=== PATIENT | female | born 1975 | race Caucasian/White ===

== ENCOUNTER 2021-02-08 06:18 | Inpatient (IN) | payer BC, OTHER ==
[2021-02-08] MEDS ORDERED: HYDROmorphone 1 MG/ML 1 ML SYRINGE IVP STA (06:36)
[2021-02-08] MEDS ORDERED: LORazepam 2 MG/ML INJ IV STA (06:36)
[2021-02-08] MEDS ORDERED: hydrALAZINE HCL 20 MG/ML 1 ML VIAL IVP STA ×2 (06:37→23:54)
--- NOTE | 2021-02-08 06:41 | ED ---
Extremity Problem HPI - General Source: patient Mode of arrival: ambulatory <TashiMarcelle Ackerman - Last Filed: 02/08/21 09:44> <Ambika Barriga Deloris - Last Filed: 02/16/21 03:01> - General Chief complaint: Extremity Problem,Nontraumatic Stated complaint: L arm pain Time Seen by Provider: 02/08/21 06:30 - History of Present Illness Initial comments: 45yo female with hx of HTN, thyroid disorders, medically managed "heart attack" no hx of stents or bypass who did not take her medications yet this morning presenting for cc of left arm pain x 2-3 days. pateint states for the past 3 days she has had pain with moving her left arm up, she states she can t barely lift it without extreme pain in the upper arm/shoulder. Patient denies redness, fevers, chills, general malaise. She denies chest pain, dyspnea, but states the pain is so severe its causing her anxiety. Pt denies falls/trauma. Patient denies hx of aneursyms/any back pain. Patient upon arrival appears nontoxic in no distress, however her blood pressure is significantly elevated. (Marcelle Akins) - Related Data Home Medications Medication Instructions Recorded Confirmed Aspirin EC [Ecotrin Low Dose] 81 mg PO DAILY 02/08/21 02/08/21 LORazepam [Ativan] 1 mg PO BID PRN 02/08/21 02/08/21 Levothyroxine Sodium [Synthroid] 125 mcg PO DAILY 02/08/21 02/08/21 Metoprolol Tartrate [Lopressor] 100 mg PO BID 02/08/21 02/08/21 Spironolactone 100 mg PO DAILY 02/08/21 02/08/21 Previous Rx's Medication Instructions Recorded Ascorbic Acid [Vitamin C] 1,000 mg PO DAILY tab 02/09/21 Cholecalciferol [Vitamin D3 (25 50 mcg PO DAILY tablet 02/09/21 Mcg = 1000 Iu)] Ibuprofen [Motrin] 600 mg PO Q6HR PRN #30 tab 02/09/21 Losartan [Cozaar] 50 mg PO DAILY #30 tab 02/09/21 Potassium Chloride ER [K-Dur 10] 10 meq PO DAILY #30 tab 02/09/21 Allergies Allergy/AdvReac Type Severity Reaction Status Date / Time ampicillin Allergy Rash/Hives Verified 02/08/21 07:48 Review of Systems ROS Other: All systems not noted in ROS Statement are negative. <Marcelle Akins Meka - Last Filed: 02/08/21 09:44> ROS Other: All systems not noted in ROS Statement are negative. <Ambika Barriga Deloris - Last Filed: 02/16/21 03:01> ROS Statement: Those systems with pertinent positive or pertinent negative responses have been documented in the HPI. Past Medical History Past Medical History: Asthma, Hypertension, Thyroid Disorder Past Surgical History: Bariatric Surgery Additional Past Surgical History / Comment(s): left thumb tendon repair 2003 Past Psychological History: Bipolar Smoking Status: Former smoker Past Alcohol Use History: None Reported Past Drug Use History: None Reported <TashiMarcelle L - Last Filed: 02/08/21 09:44> General Exam <BryonMarcelle keating - Last Filed: 02/08/21 09:44> - General Exam Comments Initial Comments: General: The patient is awake and alert, in no distress Eye: Pupils are equal, round and reactive to light, extra-ocular movements are intact. No nystagmus. There is normal conjunctiva bilaterally. No signs of icterus. Ears, nose, mouth and throat: There are moist mucous membranes and no oral lesions. Neck: The neck is supple, there is no tenderness or JVD. Cardiovascular: There is a regular rate and rhythm. No murmur, rub or gallop is appreciated. Respiratory: Lungs are clear to auscultation, respirations are non-labored, breath sounds are equal. No wheezes, stridor, rales, or rhonchi. Musculoskeletal: P Job patient over the left anterior shoulder joint. Patient refuses to fully range secondary to pain and discomfort. Wincing Normal ROM, no tenderness. Strength 5/5. Sensation intact. Pulses equal bilaterally 2+. Neurological: A&O x 3. CN II-XII intact, There are no obvious motor or sensory deficits. Coordination appears grossly intact. Speech is normal. Skin: Skin is warm and dry and no rashes or lesions are noted. Psychiatric: Cooperative, appropriate mood & affect, normal judgment. (Marcelle Akins) Course Vital Signs 02/08/21 02/08/21 02/08/21 06:22 07:52 10:00 Temperature 97.8 F Pulse Rate 72 79 66 Pulse Rate [ Pulse Oximetery ] Respiratory 22 18 18 Rate Blood Pressure 230/118 195/79 150/83 Blood Pressure [Right Arm] O2 Sat by Pulse 98 97 Oximetry 02/08/21 02/08/21 02/08/21 11:15 13:30 18:39 Temperature 98.7 F 98.8 F Pulse Rate 66 64 74 Pulse Rate [ Pulse Oximetery ] Respiratory 18 18 18 Rate Blood Pressure 147/84 151/88 172/95 Blood Pressure [Right Arm] O2 Sat by Pulse 98 96 96 Oximetry 02/08/21 02/09/21 02/09/21 20:32 00:00 00:17 Temperature Pulse Rate 74 68 Pulse Rate [ 82 Pulse Oximetery ] Respiratory 20 16 15 Rate Blood Pressure 192/110 194/97 Blood Pressure 164/83 [Right Arm] O2 Sat by Pulse 96 97 Oximetry Medical Decision Making - Lab Data Result diagrams: 02/08/21 06:53 02/08/21 06:53 <Marcelle Akins - Last Filed: 02/08/21 09:44> - Lab Data Result diagrams: 02/09/21 05:18 02/09/21 14:19 <Ambika Barriga - Last Filed: 02/16/21 03:01> - Medical Decision Making 45-year-old female presenting for left arm discomfort, which appears musculoskeletal patient however is significant hypertensive and has history of cardiac disease. EKG is not within normal limits however there is no ST elevation or depression. There is an intraventricular block. Patient troponin elevated. patient potassium low. i do feel however that this troponin is likely chronic in nature and not the cause of left arm pain as xr also shows possible intra-articular foreign body as well as osseous lesions which correlates clinically as the pain is reproducible to touch and movement. Patient will have serial troponins, and heparin was initiated as there is no other lab values to comes and patient does have cardiac hx. patient agreeable to admission/blood thinners and care plan. potassium replaced orally/IV. Dr Barriga agreeable to care plan/admission. (Marcelle Akins) I was available for consultation in the emergency department. The history and physical exam were done by the midlevel provider. I was consulted for this patients care. I reviewed the case with the midlevel provider and based on their presentation of the patient, I agree with the assessment, medical decision making and plan of care as documented. Chart was dictated using ScriptPad dictation software. Attempts were made to correct any dictation errors however some typographical errors may persist. Patient was seen during a national state of emergency due to the Covid-19 pandemic. (Ambika Barriga) - Lab Data Lab Results 02/08/21 02/08/21 02/08/21 Range/Units 06:52 06:53 06:53 WBC 8.8 (3.8-10.6) k/uL RBC 4.37 (3.80-5.40) m/uL Hgb 12.5 (11.4-16.0) gm/dL Hct 36.1 (34.0-46.0) % MCV 82.7 (80.0-100.0) fL MCH 28.6 (25.0-35.0) pg MCHC 34.6 (31.0-37.0) g/dL RDW 13.9 (11.5-15.5) % Plt Count 206 (150-450) k/uL MPV 8.8 Neutrophils % 73 % Lymphocytes % 19 % Monocytes % 5 % Eosinophils % 2 % Basophils % 1 % Neutrophils # 6.4 (1.3-7.7) k/uL Lymphocytes # 1.7 (1.0-4.8) k/uL Monocytes # 0.5 (0-1.0) k/uL Eosinophils # 0.2 (0-0.7) k/uL Basophils # 0.0 (0-0.2) k/uL Hyperchromasia Slight PT 10.1 (9.0-12.0) sec INR 0.9 (<1.2) APTT 25.3 (22.0-30.0) sec Sodium (137-145) mmol/L Potassium (3.5-5.1) mmol/L Chloride (98-107) mmol/L Carbon Dioxide (22-30) mmol/L Anion Gap mmol/L BUN (7-17) mg/dL Creatinine (0.52-1.04) mg/dL Est GFR (CKD-EPI)AfAm (>60 ml/min/1.73 sqM) Est GFR (CKD-EPI)NonAf (>60 ml/min/1.73 sqM) Glucose (74-99) mg/dL Calcium (8.4-10.2) mg/dL Magnesium (1.6-2.3) mg/dL Total Bilirubin (0.2-1.3) mg/dL AST (14-36) U/L ALT (4-34) U/L Alkaline Phosphatase (38-126) U/L Troponin I (0.000-0.034) ng/mL Total Protein (6.3-8.2) g/dL Albumin (3.5-5.0) g/dL Urine Color Colorless Urine Appearance Clear (Clear) Urine pH 6.5 (5.0-8.0) Ur Specific [place] 1.001 (1.001-1.035) Urine Protein Negative (Negative) Urine Glucose (UA) Negative (Negative) Urine Ketones Negative (Negative) Urine Blood Negative (Negative) Urine Nitrite Negative (Negative) Urine Bilirubin Negative (Negative) Urine Urobilinogen <2.0 (<2.0) mg/dL Ur Leukocyte Esterase Small H (Negative) Urine RBC 1 (0-5) /hpf Urine WBC 1 (0-5) /hpf Ur Squamous Epith Cells 2 (0-4) /hpf 02/08/21 02/08/21 02/08/21 Range/Units 06:53 06:53 06:53 WBC (3.8-10.6) k/uL RBC (3.80-5.40) m/uL Hgb (11.4-16.0) gm/dL Hct (34.0-46.0) % MCV (80.0-100.0) fL MCH (25.0-35.0) pg MCHC (31.0-37.0) g/dL RDW (11.5-15.5) % Plt Count (150-450) k/uL MPV Neutrophils % % Lymphocytes % % Monocytes % % Eosinophils % % Basophils % % Neutrophils # (1.3-7.7) k/uL Lymphocytes # (1.0-4.8) k/uL Monocytes # (0-1.0) k/uL Eosinophils # (0-0.7) k/uL Basophils # (0-0.2) k/uL Hyperchromasia PT (9.0-12.0) sec INR (<1.2) APTT (22.0-30.0) sec Sodium 140 (137-145) mmol/L Potassium 2.4 L* (3.5-5.1) mmol/L Chloride 99 (98-107) mmol/L Carbon Dioxide 32 H (22-30) mmol/L Anion Gap 9 mmol/L BUN 22 H (7-17) mg/dL Creatinine 1.05 H (0.52-1.04) mg/dL Est GFR (CKD-EPI)AfAm 75 (>60 ml/min/1.73 sqM) Est GFR (CKD-EPI)NonAf 65 (>60 ml/min/1.73 sqM) Glucose 112 H (74-99) mg/dL Calcium 8.9 (8.4-10.2) mg/dL Magnesium 1.8 (1.6-2.3) mg/dL Total Bilirubin 0.9 (0.2-1.3) mg/dL AST 28 (14-36) U/L ALT 11 (4-34) U/L Alkaline Phosphatase 70 (38-126) U/L Troponin I 0.095 H* (0.000-0.034) ng/mL Total Protein 7.6 (6.3-8.2) g/dL Albumin 4.1 (3.5-5.0) g/dL Urine Color Urine Appearance (Clear) Urine pH (5.0-8.0) Ur Specific [place] (1.001-1.035) Urine Protein (Negative) Urine Glucose (UA) (Negative) Urine Ketones (Negative) Urine Blood (Negative) Urine Nitrite (Negative) Urine Bilirubin (Negative) Urine Urobilinogen (<2.0) mg/dL Ur Leukocyte Esterase (Negative) Urine RBC (0-5) /hpf Urine WBC (0-5) /hpf Ur Squamous Epith Cells (0-4) /hpf Disposition Is patient prescribed a controlled substance at d/c from ED?: No Time of Disposition: 08:35 Decision to Admit Reason: Admit from EC Decision Date: 02/08/21 Decision Time: 08:35 <Marcelle Akins - Last Filed: 02/08/21 09:44> <Ambika Barriga - Last Filed: 02/16/21 03:01> Clinical Impression: Elevated troponin, Bone lesion, Left shoulder pain, Hypokalemia Disposition: ADMITTED IP TO THIS HOSP Condition: Stable
[2021-02-08 07:08] LABS: Basophils % (A) 1 %; Eosinophils # (A) 0.2 k/uL (0-0.7); Eosinophils % (A) 2 %; HCT 36.1 % (34.0-46.0); HGB 12.5 gm/dL (11.4-16.0); Hyperchromasia Slight; Lymphocytes # (A) 1.7 k/uL (1.0-4.8); Lymphocytes % (A) 19 %; MCH 28.6 pg (25.0-35.0); MCHC 34.6 g/dL (31.0-37.0); MCV 82.7 fL (80.0-100.0); Mean Platelet Volume 8.8; Monocytes # (A) 0.5 k/uL (0-1.0); Monocytes % (A) 5 %; Neutrophils # (A) 6.4 k/uL (1.3-7.7); Neutrophils % (A) 73 %; Platelet Count 206 k/uL (150-450); RBC 4.37 m/uL (3.80-5.40); RDW 13.9 % (11.5-15.5); WBC 8.8 k/uL (3.8-10.6)
[2021-02-08 07:15] LABS: Appearance,Urine Clear (Clear); Bilirubin,Urine Negative (Negative); Blood,Urine Negative (Negative); Color,Urine Colorless; Glucose,Urine (UA) Negative (Negative); Ketones,Urine Negative (Negative); Leukocyte Esterase,Urine Small (Negative); Nitrite,Urine Negative (Negative); PH, Urine 6.5 (5.0-8.0); Protein,Urine Negative (Negative); RBC,Urine 1 /hpf (0-5); Specific Gravity,Urine 1.001 (1.001-1.035); Squamous Epithelial Cell,Urine 2 /hpf (0-4); Urobilinogen,Urine <2.0 mg/dL (<2.0); WBC,Urine 1 /hpf (0-5)
[2021-02-08 07:18] LABS: Albumin 4.1 g/dL (3.5-5.0); Calcium 8.9 mg/dL (8.4-10.2); Total Bilirubin 0.9 mg/dL (0.2-1.3); Total Protein 7.6 g/dL (6.3-8.2)
[2021-02-08 07:23] LABS: Potassium 2.4 mmol/L (3.5-5.1)
[2021-02-08] MEDS ORDERED: POTASSIUM CHLORIDE 20 MEQ in WATER FOR INJECTION 1 100ML.BAG IVPB ONE (07:25)
[2021-02-08] MEDS ORDERED: POTASSIUM CHLORIDE ER 20 MEQ TAB.ER PO STA ×2 (07:25→09:49)
--- NOTE | 2021-02-08 07:30 | XR ---
EXAMINATION TYPE: XR chest 2V DATE OF EXAM: 02/08/2021 COMPARISON: Chest x-ray October 15, 2011. HISTORY: Hypertension. Left arm pain. TECHNIQUE: Frontal and lateral views of the chest are obtained. FINDINGS: There is new right lower lobe opacity medial aspect on 2 views. Left lung is clear. No ple ural effusion or pneumothorax seen. Cardiac silhouette size is upper limits of normal. Lap band devic e redemonstrated, slightly more horizontal orientation noted. Correlate clinically for possible slip page. The osseous structures are intact. IMPRESSION: New right lower lobe acute infiltrate and/or atelectasis.
--- NOTE | 2021-02-08 07:41 | XR ---
EXAMINATION TYPE: XR shoulder complete LT, XR humerus LT DATE OF EXAM: 02/08/2021 CLINICAL HISTORY: Pain and diminished range of motion. TECHNIQUE: Three views of the left shoulder are obtained. 2 views left humerus. COMPARISON: None. FINDINGS: There is no acute fracture/dislocation evident in the left shoulder. The acromioclavicula r and glenohumeral joint spaces appear within normal limits. Numerous rounded densities some appear t o localize to the humeral head and scaphoid including osseous glenoid. Some likely external to the pamela ne presumed intra-articular in location. Overlying Clothing material is present. No acute fracture or dislocation left humerus. Visualized portion of the left elbow joint shows addit ional sclerotic foci. IMPRESSION: As above. Nonspecific intra-articular sclerotic foci differential includes such etiologie s such as osteopoikilosis. Similar findings noted on 2013 left elbow and wrist x-rays. Possible intra -articular loose bodies of left shoulder region. Advise nonemergent orthopedic referral it has not be en performed.
[2021-02-08] MEDS ORDERED: METOPROLOL TARTRATE 50 MG TAB PO STA (07:50)
[2021-02-08] MEDS ORDERED: HEPARIN SODIUM 1,000 UN/ML (10ML VL) IV PRN (08:29)
[2021-02-08] MEDS ORDERED: HEPARIN SODIUM 1,000 UN/ML (10ML VL) IV ONE (08:29)
[2021-02-08] MEDS ORDERED: NITROGLYCERIN SL TABS 0.4 MG TAB SUBLINGUAL PRN (08:32)
[2021-02-08] MEDS: HEPARIN SOD,PORK IN 0.45% NACL 25,000 UNIT in 0.45% NACL 1 250ML.BAG IV SCH (09:13)
[2021-02-08] MEDS: SPIRONOLACTONE 25 MG TAB PO SCH (09:59)
[2021-02-08] MEDS: KETOROLAC 15 MG/ML 1 ML VIAL IVP SCH ×2 (10:00→20:29)
[2021-02-08 10:25] LABS: INR 0.9 (<1.2); Partial Thromboplastin Time 25.3 sec (22.0-30.0); Prothrombin Time 10.1 sec (9.0-12.0)
[2021-02-08] MEDS: METOPROLOL TARTRATE 50 MG TAB PO SCH (11:19)
--- NOTE | 2021-02-08 12:55 | CONS ---
CONSULTATION Mrs. Tripathi is a 45-year-old female who presented with ongoing left arm discomfort going on for the last 2 days. The discomfort is constant, worse with certain position and palpitation. Cardiology consultation was requested because of mild troponin elevation. The patient was noted to be hypokalemic on presentation. She is coronavirus positive on presentation. The patient, according to her, had been admitted to [facility] in October 2019 and at that time had mild troponin elevation but no cardiac catheterization was done. She has also an issue with her function and adrenal gland has been evaluated at [facility], although details of that are not available to me. The patient has dyspnea on exertion. She denies any chest discomfort. She has occasional dizziness and palpitation but no syncope. Mild peripheral edema. No clear PND nor orthopnea. She denies any recent trauma to her arm. Her coronary risk factors are negative for smoking. She stopped many years ago. She has hypertension, but did not take her medication this morning. She has no history of diabetes or hyperlipidemia. MEDICATION: Her medications at home included Synthroid, spironolactone 100 mg daily, metoprolol tartrate 100 mg twice a day, lorazepam, and aspirin. REVIEW OF SYSTEMS: RESPIRATORY SYSTEM: She has dyspnea on exertion, but no recent wheezing or cough. GI SYSTEM: No recent GI bleeding, no peptic ulcer disease. SYSTEM: No recent dysuria or hematuria. She had the adrenal gland abnormality, although details are not available. PHYSICAL EXAMINATION: On presentation to the emergency room, her blood pressure was 230/118 is down to 150/83 after receiving her medication. Examination otherwise her heart rate in the 60s. HEAD: Normocephalic. EYES: Sclerae anicteric. NECK: Good upstroke. No jugular venous distention. LUNGS: Clear to auscultation. HEART: Regular rate and rhythm. S1, S2. No S3 with a systolic murmur 2/6, early peaking. No diastolic murmur. No rub. ABDOMEN: Soft, nontender. Positive bowel sounds. No organomegaly. EXTREMITIES: No edema. Intact distal pulses. LAB DATA: Lab data revealed troponin 0.095, 0.084. BUN and creatinine 22 and 1.05. Potassium 2.4. Hemoglobin of 12.5. Her coronavirus PCR is positive. Her chest x-ray shows right lower lobe infiltrate. IMPRESSION: 1. COVID-19 infection. 2. Mild troponin elevation most likely related to the infectious process. 3. Hypokalemia, most likely related to adrenal gland abnormalities. Patient is on high dose of Aldactone and probably that was she may have an adrenal benign tumor, although details are not available. She has underwent prior workup in that regard according to her. 4. History of hypertension. 5. Left arm discomfort atypical for ischemic heart disease, reproducible by palpation. RECOMMENDATION: I will obtain echocardiogram with Doppler. We will try to obtain the prior workup that was done in [facility]. Depending on the results of the testing, further recommendation will be made. In the meantime, she has been initiated in her treatment. I will try to obtain an EKG to compare to the EKG that she has done here with showed T- wave inversion in lateral leads with evidence of hypertrophy. Depending on the results of testing, further recommendation will be made. Thank you for this consult. We will follow with you. MMODL / IJN: [id number] /
--- NOTE | 2021-02-08 14:12 | P.HPIM ---
History of Present Illness H&P Date: 02/08/21 HISTORY OF PRESENT ILLNESS This is a 45-year-old female patient of Dr. Jarrett with PMH of intermittent asthma, hypertension, hypothyroidism and history of lap band surgery. She states that she developed left shoulder pain the one from the left shoulder to the upper arm area. She woke up on Monday and felt like she slept on it wrong and experienced pain. The pain has been getting worse and has not been able to sleep for the past 2 nights. Patient is unable to lift her left arm. She utilizes her right arm to lift her left arm. She denies having any numbness or tingling. Area is very tender to touch. She denies having any radiation of the pain. No chest pain. She denies any bloody or tarry stools. She does see a chiropractor. Patient presented to [facility] emergency center for evaluation. She was afebrile, heart rate 72, blood pressure 230/118. Pulse ox 90% on room air. CBC was unremarkable. Potassium 2.4, CO2 32. BUN 22 and creatinine 1.04. Blood sugar 112. Magnesium 1.8. Troponin 0.095. 0.084 and 0.077. Urinalysis negative for infection. COVID-19 positive. EKG with sinus rhythm with T-wave inversions in Left shoulder x-ray reveals intra-articular sclerotic foci differential includes osteopoikilosis. Possible intra-articular loose bodies of the left shoulder region. Chest x-ray reveals new right lower lobe acute infiltrate and/or atelectasis Patient received hydralazine IV push 1, Lopressor, potassium, started on heparin drip, aspirin, Lopressor and Aldactone to be admitted to the cardiac stepdown unit and cardiology consult. REVIEW OF SYSTEMS Constitutional: No fever, no chills, no night sweats. No weight change. No weakness, fatigue or lethargy. No daytime sleepiness. EENT: No headache. No blurred vision or double vision, no loss of vision. No loss of Hearing, no ringing in the ears, no dizziness. No nasal drainage or congestion. No epistaxis. No sore throat. Lungs: No shortness of breath, cough, no sputum production. No wheezing. Cardiovascular: No chest pain, no lower extremity edema. No palpitations. No paroxysmal nocturnal dyspnea. No orthopnea. No lightheadedness or dizziness. No syncopal episodes. Abdominal: No abdominal pain. No nausea, vomiting. No diarrhea. No constipation. No bloody or tarry stools.. No loss of appetite. Genitourinary: No dysuria, increased frequency, urgency. No urinary retention. Musculoskeletal: No myalgias. No muscle weakness, no gait dysfunction, no frequent falls. No back pain. No neck pain. Left shoulder and left upper arm pain. Integumentary: No wounds, no lesions. No rash or pruritus. No unusual bruising. No change in hair or nails. Neurologic: No aphasia. No facial droop. No change in mentation. No head injury. No headache. No paralysis. No paresthesia. Psychiatric: No depression. No anxiety. No mood swings. Endocrine: No abnormal blood sugars. No weight change. No excessive sweating or thirst. No cold intolerance. SOCIAL HISTORY Patient was a smoker at age [age]. No alcohol use, no illicit drug use, no marijuana use. FAMILY HISTORY Mother is alive with history of hypertension, hypothyroidism, gallgladder disease. Father is alive with history of COPD. Patient has one brother with history of hypertension. No sisters, no children. There is history of coronary artery disease in her grandparents. PHYSICAL EXAMINATION Gen: This is an obese 45-year-old female. Patient is resting on the ear structure and appears to be comfortable and in no acute distress. No acute respiratory distress noted. HEENT: Head is atraumatic, normocephalic. Pupils equal, round. Sclerae is anicteric. NECK: Supple. No JVD. No lymphadenopathy. No thyromegaly. LUNGS: Managed to the bases. No wheezes or rhonchi. No intercostal retractions. No accessory muscle usage. HEART: Regular rate and rhythm. 2/6 systolic murmur. ABDOMEN: Soft. Bowel sounds are present. No masses. No tenderness. EXTREMITIES: No pedal edema. No calf tenderness. Left shoulder decreased range of motion, significant tenderness. Capillary refill immediate. NEUROLOGICAL: Patient is awake, alert and oriented x3. Cranial nerves 2 through 12 are grossly intact. ASSESSMENT AND PLAN 1. Covid [address] Beckett. Patient started on dexamethasone 6 mg oral daily, vitamin supplements. 2. Elevated troponin secondary to infectious process. Consult with cardiology appreciated. Patient is on a heparin drip. Echocardiogram ordered. 3. Hypokalemia. Status post replacement. Repeat potassium level at 3 PM. 4. Hypertensive emergency. Status post IV hydralazine and Lopressor. Continue Lopressor 100 mg twice daily, Aldactone 100 mg daily. 5. Left shoulder pain. Consult with orthopedics. Toradol 50 mg IV push every 6 hours for pain. 6. Hyperaldosteronism. Continue Aldactone, replace potassium. 7. Hypothyroidism. Continue levothyroxine 125 g daily. 8. Mild intermittent asthma without exacerbation. Patient is not currently on medications. 9. GI prophylaxis. Protonix. 9. DVT prophylaxis. Patient is on heparin drip. Patient will be admitted to the hospital for a minimum of 2 night stay. DISCHARGE PLAN Home. Impression and plan of care have been directed as dictated by the signing physician. Rivka Combs nurse practitioner acting as scribe for signing physician. Past Medical History Past Medical History: Asthma, Hypertension, Thyroid Disorder Past Surgical History: Bariatric Surgery Additional Past Surgical History / Comment(s): left thumb tendon repair 2003 Past Psychological History: Bipolar Smoking Status: Former smoker Past Alcohol Use History: None Reported Past Drug Use History: None Reported Medications and Allergies Home Medications Medication Instructions Recorded Confirmed Type Aspirin EC [Ecotrin Low Dose] 81 mg PO DAILY 02/08/21 02/08/21 History LORazepam [Ativan] 1 mg PO BID PRN 02/08/21 02/08/21 History Levothyroxine Sodium [Synthroid] 125 mcg PO DAILY 02/08/21 02/08/21 History Metoprolol Tartrate [Lopressor] 100 mg PO BID 02/08/21 02/08/21 History Spironolactone 100 mg PO DAILY 02/08/21 02/08/21 History Allergies Allergy/AdvReac Type Severity Reaction Status Date / Time ampicillin Allergy Rash/Hives Verified 02/08/21 07:48 Physical Exam Vitals: Vital Signs Temp Pulse Resp BP Pulse Ox 02/08/21 07:52 79 18 195/79 02/08/21 06:22 97.8 F 72 22 230/118 98 Intake and Output 02/07/21 02/08/21 02/08/21 22:59 06:59 14:59 Other: Weight 86.183 kg Results CBC & Chem 7: 02/09/21 05:18 02/09/21 05:18 Labs: Abnormal Lab Results - Last 24 Hours (Table) 02/08/21 02/08/21 02/08/21 Range/Units 06:53 06:53 06:53 Potassium 2.4 L* (3.5-5.1) mmol/L Carbon Dioxide 32 H (22-30) mmol/L BUN 22 H (7-17) mg/dL Creatinine 1.05 H (0.52-1.04) mg/dL Glucose 112 H (74-99) mg/dL Troponin I 0.095 H* (0.000-0.034) ng/mL Ur Leukocyte Esterase Small H (Negative)
[2021-02-08] MEDS: LORazepam 1 MG TAB PO PRN (14:55)
[2021-02-08] MEDS: ZINC SULFATE 220 MG CAP PO SCH (14:55)
[2021-02-08] MEDS: CHOLECALCIFEROL 25 MCG (1000 IU) TABLET PO SCH (14:56)
[2021-02-08] MEDS: dexAMETHasone 2 MG TAB PO SCH (14:57)
--- NOTE | 2021-02-08 16:57 | P.CNPUL ---
History of Present Illness Consult date: 02/08/21 Chief complaint: Shoulder pain History of present illness: 45-year-old female patient, presented to the emergency department which shoulder pain. The patient has been having ongoing left arm discomfort for the past 2 days. She came into the emergency department. Her blood pressure was 2 3118 and pulse ox was 90% on room air oxygen. Further testing revealed a positive Covid 19 infection. Patient had a BUN of 22 with a creatinine of 1 and the troponins were 0.08 and 0.07 respectively 2. EKG showed some nonspecific T- wave inversions. X-ray of the shoulder showed sclerosis within the joint and there was some nonspecific intra-articular sclerotic foci. The chest x-ray revealed new right lower lobe pulmonary infiltration and the left lung was clear. The patient had a potassium level of 2.4 which is being replaced. Renal function was stable. CBC was normal. Troponins were mentioned were 0.09 0.08- 0.07 respectively. Urinalysis was negative. The patient is currently on room air oxygen. Review of Systems Constitutional: No fever, no chills, no night sweats. No weight change. No weakness, fatigue or lethargy. No daytime sleepiness. EENT: No headache. No blurred vision or double vision, no loss of vision. No loss of Hearing, no ringing in the ears, no dizziness. No nasal drainage or congestion. No epistaxis. No sore throat. Lungs: No shortness of breath, cough, no sputum production. No wheezing. Cardiovascular: No chest pain, no lower extremity edema. No palpitations. No paroxysmal nocturnal dyspnea. No orthopnea. No lightheadedness or dizziness. No syncopal episodes. Abdominal: No abdominal pain. No nausea, vomiting. No diarrhea. No constipat ion. No bloody or tarry stools.. No loss of appetite. Genitourinary: No dysuria, increased frequency, urgency. No urinary retention. Musculoskeletal: No myalgias. No muscle weakness, no gait dysfunction, no frequent falls. No back pain. No neck pain. Left shoulder and left upper arm pain. Integumentary: No wounds, no lesions. No rash or pruritus. No unusual bruising. No change in hair or nails. Neurologic: No aphasia. No facial droop. No change in mentation. No head injury. No headache. No paralysis. No paresthesia. Psychiatric: No depression. No anxiety. No mood swings. Endocrine: No abnormal blood sugars. No weight change. No excessive sweating or thirst. No cold intolerance. Past Medical History Past Medical History: Asthma, Hypertension, Thyroid Disorder Past Surgical History: Bariatric Surgery Additional Past Surgical History / Comment(s): left thumb tendon repair 2003 Past Psychological History: Bipolar Smoking Status: Former smoker Past Alcohol Use History: None Reported Past Drug Use History: None Reported Medications and Allergies Home Medications Medication Instructions Recorded Confirmed Type Aspirin EC [Ecotrin Low Dose] 81 mg PO DAILY 02/08/21 02/08/21 History LORazepam [Ativan] 1 mg PO BID PRN 02/08/21 02/08/21 History Levothyroxine Sodium [Synthroid] 125 mcg PO DAILY 02/08/21 02/08/21 History Metoprolol Tartrate [Lopressor] 100 mg PO BID 02/08/21 02/08/21 History Spironolactone 100 mg PO DAILY 02/08/21 02/08/21 History Allergies Allergy/AdvReac Type Severity Reaction Status Date / Time ampicillin Allergy Rash/Hives Verified 02/08/21 07:48 Physical Exam Vitals: Vital Signs Temp Pulse Resp BP Pulse Ox 02/08/21 13:30 98.7 F 64 18 151/88 96 02/08/21 11:15 66 18 147/84 98 02/08/21 10:00 66 18 150/83 97 02/08/21 07:52 79 18 195/79 02/08/21 06:22 97.8 F 72 22 230/118 98 Intake and Output 02/08/21 02/08/21 02/08/21 06:59 14:59 22:59 Other: Weight 86.183 kg Gen. appearance, comfortable not in distress Head exam was generally normal. There was no scleral icterus or corneal arcus. Mucous membranes were moist. Neck was supple and without jugular venous distension, thyromegaly, or carotid bruits. Carotids were easily palpable bilaterally. There was no adenopathy. Lungs were clear to auscultation and percussion, and with normal diaphragmatic excursion. No wheezes or rales were noted. Cardiac exam revealed the PMI to be normally situated and sized. The rhythm was regular and no extrasystoles were noted during several minutes of auscultation. The first and second heart sounds were normal and physiologic splitting of the second heart sound was noted. There were grade 2/6 systolic ejection murmur, rubs, clicks, or gallops. Abdominal exam revealed normal bowel sounds. The abdomen was soft, non-tender, and without masses, organomegaly, or appreciable enlargement of the abdominal aorta. Examination of the extremities revealed easily palpable radial, femoral and pedal pulses. There was no cyanosis, clubbing or edema. The left shoulder has decreased range of motion because of pain Neurologically, the patient is awake and alert and the patient does not have any focal neurological deficit. Cranial nerves are essentially intact. Results - Laboratory Findings CBC and BMP: 02/08/21 06:53 02/08/21 06:53 PT/INR, D-dimer PT 10.1 sec (9.0-12.0) 02/08/21 06:52 INR 0.9 (<1.2) 02/08/21 06:52 Abnormal lab findings: Abnormal Labs 02/08/21 02/08/21 02/08/21 06:53 06:53 06:53 Potassium 2.4 L* Carbon Dioxide 32 H BUN 22 H Creatinine 1.05 H Glucose 112 H Troponin I 0.095 H* Ur Leukocyte Esterase Small H Coronavirus (PCR) 02/08/21 02/08/21 02/08/21 09:00 09:23 12:32 Potassium Carbon Dioxide BUN Creatinine Glucose Troponin I 0.084 H* 0.077 H* Ur Leukocyte Esterase Coronavirus (PCR) Detected A - Diagnostic Findings Chest x-ray: image reviewed Assessment and Plan Plan: 1 acute Covid 19 infection, pneumonia is doubtful. The patient has some limited infiltration of the right lung base the left lung is clear and the patient is pulse oxing 97% on room air. In fact the Covid 19 infection was probably an incidental finding. The patient presented initially which shoulder pain. Currently she is on Decadron.head the patient minimal amount of cough and she lost the taste and smell and she had some low-grade fever earlier which fits in the same clinical picture. 2 troponin leak, likely viral in nature. Cardiology is also on the case 3 hypertension elevated blood pressure, but admission, current BP is 151/88 and the patient is currently on a combination of metoprolol 100 mg by mouth twice a day and Aldactone. 4 left shoulder pain, orthopedic consultations been obtained 5 adrenal lesion, likely a benign adenoma, yet the possibility of an adrenal lesion along with hypertensive conditions need to be established in this patient knowing that she also has a hypokinemia. His opposite raises the concern for conditions such as hypercortisolism.this is been in this. [facility] the patient was placed on Aldactone. 6 hypothyroidism currently on Synthroid 7 mild intermittent bronchial asthma which is currently inactive in stable 8 hypokinemia 9 Obesity, Cushinoid feature Plan Room air oxygen The value of Decadron is limited in patient's with no evidence of any hypoxemia in the setting of Covid 19 related infections. The patient was admitted and started No need for any other treatments regarding Covid 19 Echocardiogram Blood pressure monitoring and look to rule out secondary causes of hypertensionand consider the possibility of addition of an SALVATORE inhibitor We will sign off the case and the patient's pulmonary status is stable and medicine should be able to handle her Covid 19 infection.
--- NOTE | 2021-02-08 17:00 | ECHOF ---
Referral Reason:elevated trop MEASUREMENTS -------- HEIGHT: 165.1 cm WEIGHT: 86.2 kg BP: 195/79 IVSd: 1.7 cm (0.6 - 1.1) LVIDd: 5.2 cm (3.9 - 5.3) LVPWd: 1.7 cm (0.6 - 1.1) EDV(Teich): 131 ml IVSs: 2.3 cm LVIDs: 3.3 cm LVPWs: 2.4 cm %IVS Thck: 38 % ESV(Teich): 44 ml EF(Teich): 67 % %FS: 37 % SV(Teich): 87 ml RVIDd: 3.5 cm (< 3.3) LALs A4C: 5.9 cm LAAs A4C: 28.0 cm LAESV A-L A4C: 112 ml LAESV MOD A4C: 111 ml LALs A2C: 6.1 cm LAAs A2C: 28.3 cm LAESV A-L A2C: 112 ml LAESV MOD A2C: 112 ml LAESV(A-L): 113 ml LAESV Index (A-L): 58.44 ml/m Ao Diam: 2.0 cm (2.0 - 3.7) AV Cusp: 2.1 cm (1.5 - 2.6) EPSS: 1.0 cm MV E Jeremy: 1.18 m/s MV DecT: 241 ms MV Dec [place]: 4.9 m/s MV A Jeremy: 0.72 m/s MV E/A Ratio: 1.65 MV PHT: 70 ms MV PHT: 76 ms MVA By PHT: 2.9 cm MV Vmax: 1.14 m/s MV Vmean: 0.83 m/s MV maxP.15 mmHg MV meanP.97 mmHg MV VTI: 30.7 cm LVOT Vmax: 1.21 m/s LVOT maxP.87 mmHg AV Vmax: 1.86 m/s AV maxP.90 mmHg TR Vmax: 1.67 m/s TR maxP.18 mmHg RAP: 5.00 mmHg RVSP: 16.18 mmHg MV EF SLOPE: 56.81 mm/s (70 - 150) MV EXCURSION: 11.82 mm (> 18.000) FINDINGS -------- Sinus rhythm. This was a technically adequate study. The left ventricular size is normal. There is moderate concentric left ventricular hypertrophy. O verall left ventricular systolic function is normal with, an EF between 55 - 60 %. The diastolic fi lling pattern is normal for the age of the patient 28.58. The right ventricle is mildly enlarged. LA is severely dilated >40 ml/m2 The right atrial size is normal. Interatrial and interventricular septum intact. The aortic valve is trileaflet and appears structurally normal. There is no evidence of aortic regu rgitation. There is no evidence of aortic stenosis. Moderate mitral regurgitation is present. Mild mitral stenosis , with a MVA of 2.9cm (by PHT) Mild tricuspid regurgitation present. There is no evidence of pulmonary hypertension. The right v entricular systolic pressure, as measured by Doppler, is 16.18mmHg. There is no pulmonic regurgitation present. The aortic root size is normal. Normal inferior vena cava with normal inspiratory collapse consistent with estimated right atrial pre ssure of 5 mmHg. There is a small, generalized pericardial effusion present. CONCLUSIONS -------- 1. The left ventricular size is normal. 2. There is moderate concentric left ventricular hypertrophy. 3. Overall left ventricular systolic function is normal with, an EF between 55 - 60 %. 4. The right ventricle is mildly enlarged. 5. LA is severely dilated >40 ml/m2 6. Moderate mitral regurgitation is present. 7. Mild mitral stenosis. 8. , with a MVA of 2.9cm (by PHT) 9. Mild tricuspid regurgitation present. 10. There is a small, generalized pericardial effusion present. MANAGER OF CORPORATE COMMUNICATIONS: Carlie Ivey RDCS
[2021-02-08] MEDS ORDERED: Potassium Replacement Protocol 1 EACH MISC MISCELLANE PRN (23:45)
[2021-02-08] MEDS ORDERED: hydrALAZINE HCL 20 MG/ML 1 ML VIAL IVP PRN (23:54)
[2021-02-09] MEDS: POTASSIUM CHLORIDE ER 20 MEQ TAB.ER PO SCH ×5 (00:01→15:24)
[2021-02-09] MEDS: METOPROLOL TARTRATE 50 MG TAB PO SCH ×2 (00:01→08:58)
[2021-02-09] MEDS: LORazepam 1 MG TAB PO PRN (02:37)
[2021-02-09 04:00] VITALS: RESP 16
[2021-02-09] MEDS: KETOROLAC 15 MG/ML 1 ML VIAL IVP SCH ×3 (05:46→12:25)
[2021-02-09] MEDS ORDERED: LEVOTHYROXINE 100 MCG TAB PO SCH (06:30)
[2021-02-09 08:03] LABS: Basophils % (A) 0 %; Eosinophils % (A) 0 %; HCT 31.4 % (34.0-46.0); HGB 11.3 gm/dL (11.4-16.0); Hyperchromasia Slight; Lymphocytes # (A) 0.9 k/uL (1.0-4.8); Lymphocytes % (A) 9 %; MCH 29.8 pg (25.0-35.0); MCHC 35.9 g/dL (31.0-37.0); Mean Platelet Volume 9.8; Monocytes # (A) 0.4 k/uL (0-1.0); Monocytes % (A) 4 %; Neutrophils # (A) 9.1 k/uL (1.3-7.7); Neutrophils % (A) 87 %; Platelet Count 191 k/uL (150-450); RBC 3.79 m/uL (3.80-5.40); RDW 13.8 % (11.5-15.5); WBC 10.4 k/uL (3.8-10.6)
[2021-02-09 08:15] LABS: Cholesterol 173 mg/dL (<200); HDL Cholesterol 57 mg/dL (40-60); LDL Cholesterol,Calculated 77 mg/dL (0-99); Triglycerides 196 mg/dL (<150)
[2021-02-09 08:21] LABS: Partial Thromboplastin Time 32.6 sec (22.0-30.0); Prothrombin Time 10.3 sec (9.0-12.0)
[2021-02-09 08:33] LABS: Calcium 8.6 mg/dL (8.4-10.2); Potassium 2.9 mmol/L (3.5-5.1)
[2021-02-09] MEDS: SPIRONOLACTONE 25 MG TAB PO SCH (08:58)
[2021-02-09] MEDS: CHOLECALCIFEROL 25 MCG (1000 IU) TABLET PO SCH (08:58)
[2021-02-09] MEDS: dexAMETHasone 2 MG TAB PO SCH (08:58)
[2021-02-09] MEDS: HEPARIN SOD,PORK IN 0.45% NACL 25,000 UNIT in 0.45% NACL 1 250ML.BAG IV SCH (08:59)
[2021-02-09] MEDS: ZINC SULFATE 220 MG CAP PO SCH (08:59)
[2021-02-09] MEDS ORDERED: ASPIRIN 325 MG TAB PO SCH (09:00)
[2021-02-09] MEDS ORDERED: ASCORBIC ACID 500 MG TAB PO SCH (09:00)
[2021-02-09] MEDS ORDERED: ASPIRIN 81 MG PO SCH (09:00)
[2021-02-09] MEDS ORDERED: LOSARTAN 50 MG TAB PO SCH (09:45)
[2021-02-09] MEDS ORDERED: POTASSIUM CHLORIDE ER 20 MEQ TAB.ER PO SCH (09:45)
--- NOTE | 2021-02-09 10:11 | PN ---
PROGRESS NOTE Mrs. Tripathi is a 45-year-old female who presented with severe left arm discomfort, reproducible by palpation. She was seen by Cardiology because of mild elevation of her troponin. She was found to be COVID-19 positive. She continues to be mildly dyspneic. She has continued to have discomfort in the left arm. I reviewed the data that was performed in [facility] in October of 2019. At that time presented with troponin elevation was found to have low potassium and was diagnosed with probable primary hyperaldosteronism. She had an echocardiogram performed yesterday revealed a preserved left ventricular size and systolic function with moderate mitral regurgitation and mild tricuspid regurgitation. She was evaluated by Dr. Delvalle in regard to her COVID-19. She continues to be at this time on Aldactone 100 mg daily, aspirin once a day, IV heparin, metoprolol tartrate 100 mg twice a day. PHYSICAL EXAMINATION: Blood pressure running in the 140s, but yesterday she was more hypertensive. Heart rate in the 70s. LUNGS: Clear. HEART: Regular rate and rhythm. S1, S2. No S3. No rub. ABDOMEN: Soft, nontender. EXTREMITIES: No edema. Left arm with left arm discomfort. Her potassium is 2.9. Her cholesterol is 173 with an LDL of 77. IMPRESSION: 1. Troponin elevation, unlikely to be related to primary cardiac event most likely related to COVID-19 infection. 2. COVID-19 positive with no significant dyspnea. 3. Hypertension with hypokalemia, most likely primary hyperaldosteronism. 4. Persistent hypokalemia. RECOMMENDATION: I will add to her regimen low-dose losartan. I will give her extra potassium. From the cardiac standpoint, the elevation of troponin does not reflect a primary cardiac event so I will stop the IV heparin and put her on Lovenox subcu. MMODL / IJN: [id number] /
--- NOTE | 2021-02-09 12:12 | P.NPCON ---
History of Present Illness - Reason for Consult hypokalemia - History of Present Illness Reason for consultation: Hypertension History of present illness: Patient is a 45-year-old female seen in renal consultation for hypertension. Patient presented to the hospital on 02/08/2021 with pain in her left arm. Patient says she was having pain with moving her left arm up. Orthopedic surgery has been consulted to see her. Her blood pressure was 230/118 on admission but is now better controlled. It was 168/84 this morning. Patient states she has been told of hyperaldosteronism in the past and has lesions on her adrenal gland. She has refused adrenalectomy in the past. She does take spironolactone 100 mg once daily at home. Her potassium was very low this admission is being aggressively replaced. Losartan has been added by cardiology. She is also on Lopressor 100 mg twice daily. Denies chest pain or shortness of breath. Good urine output. No hematuria or dysuria. No history of renal disease. Creatinine 0.96 today. She is receiving Toradol as needed for pain. No chest pain or shortness of breath at this time. No vomiting or diarrhea. Patient follows with a support associate out of [facility] (Dr. Whitaker). Vital signs are stable. General: The patient appeared well nourished and normally developed. HEENT: Head exam is unremarkable. Neck is without jugular venous distension. LUNGS: Breath sounds decreased. HEART: Rate and Rhythm are regular. ABDOMEN: Soft, nontender. EXTREMITITES: No clubbing, cyanosis, or edema. Past Medical History Past Medical History: Asthma, Hypertension, Thyroid Disorder History of Any Multi-Drug Resistant Organisms: None Reported Past Surgical History: Bariatric Surgery Additional Past Surgical History / Comment(s): left thumb tendon repair 2003 Past Anesthesia/Blood Transfusion Reactions: No Reported Reaction Past Psychological History: Bipolar Smoking Status: Former smoker Past Alcohol Use History: None Reported Past Drug Use History: None Reported Medications and Allergies Home Medications Medication Instructions Recorded Confirmed Type Aspirin EC [Ecotrin Low Dose] 81 mg PO DAILY 02/08/21 02/08/21 History LORazepam [Ativan] 1 mg PO BID PRN 02/08/21 02/08/21 History Levothyroxine Sodium [Synthroid] 125 mcg PO DAILY 02/08/21 02/08/21 History Metoprolol Tartrate [Lopressor] 100 mg PO BID 02/08/21 02/08/21 History Spironolactone 100 mg PO DAILY 02/08/21 02/08/21 History Allergies Allergy/AdvReac Type Severity Reaction Status Date / Time ampicillin Allergy Rash/Hives Verified 02/08/21 07:48 Physical Exam Vitals: Vital Signs Temp Pulse Pulse Resp BP BP Pulse Ox 02/09/21 08:00 98.5 F 72 16 168/84 97 02/09/21 03:59 80 16 144/68 98 02/09/21 00:17 68 15 194/97 02/09/21 00:00 82 16 164/83 97 02/08/21 20:32 74 20 192/110 96 02/08/21 18:39 98.8 F 74 18 172/95 96 02/08/21 13:30 98.7 F 64 18 151/88 96 Intake and Output 02/08/21 02/09/21 02/09/21 22:59 06:59 14:59 Intake Total 151.954 Balance 151.954 Intake: Intake, IV Titration 151.954 Amount Heparin Sod,Pork in 0.45% 151.954 NaCl 25,000 unit In 0.45 % NaCl 1 250ml.bag @ 11.6 UNITS/KG/HR 9.997 mls/hr IV .Q24H [facility] Rx#: [id number] Other: Voiding Method Toilet Toilet # Voids 1 1 Weight 86.183 kg Results - Lab Results Most recent lab results Calcium 8.6 mg/dL (8.4-10.2) 02/09/21 05:18 Magnesium 1.8 mg/dL (1.6-2.3) 02/09/21 05:18 02/09/21 05:18 02/09/21 05:18 Assessment and Plan Plan: Assessment: 1. Accelerated hypertension exacerbated by pain. Patient has been told about primary hyperaldosteronism in the past and follows with a support associate out of Dr. Sherman Bianchi. She has been advised to undergo adrenalectomy in the past but has refused. 2. Hypokalemia from hyperaldosteronism. 3. COVID-19 infection. Plan: Maintain spironolactone and Lopressor. Losartan added by cardiology today. Potassium being replaced. Patient wishes to follow-up in our office upon discharge. Follow up in one week. Also advised to get BMP and magnesium level checked 2-3 days post discharge. To monitor blood pressure at home. Low-salt diet. Also on high-dose maintenance potassium. Decrease the dose to 10 mEq 1 daily upon discharge. Patient states she's had high potassium in the past. Thank you for the consultation. I will continue to follow the patient with you during her hospital stay.
--- NOTE | 2021-02-09 14:19 | P.PN ---
Progress Note - Text Progress Note Date: 02/09/21 Patient is a 45 year old female admitted with Covid-19, elevated troponins, and left shoulder pain. Patient is not evaluated at bedside today and is being discharged home today. Orthopedics is consulted due to left shoulder pain. X-ray of the left shoulder is reviewed revealing nonspecific calcifications. No acute fracture or dislocation. Recommend an MRI of the left shoulder to be done on an outpatient basis once she has recovered from Covid 19.
[2021-02-09 14:51] VITALS: BP 172/87; PULSE 65; TEMP 98.3
--- NOTE | 2021-02-09 15:07 | P.DS ---
Providers Date of admission: 02/08/21 08:58 Expected date of discharge: 02/09/21 Attending physician: Sidney Romero Consults: 02/08/21 08:32 Consult Physician Urgent Consulting Provider: Bartolome Morris Consult Reason/Comments: left arm pain, elevated troponin Do you want consulting provider notified?: Yes 02/08/21 13:58 Consult Physician Routine Consulting Provider: Jersey Sanchez Consult Reason/Comments: Left shoulder pain Do you want consulting provider notified?: Yes 02/08/21 14:09 Consult Physician Routine Consulting Provider: Asaf Delvalle Consult Reason/Comments: COVID Do you want consulting provider notified?: Yes 02/09/21 10:38 Consult Physician Routine Consulting Provider: Jeanette Muñoz Consult Reason/Comments: Hyperaldosteronism Do you want consulting provider notified?: Yes Primary care physician: [facility] Hospital Course: HISTORY OF PRESENT ILLNESS This is a 45-year-old female patient of Dr. Jarrett with PMH of intermittent asthma, hypertension, hypothyroidism and history of lap band surgery. She states that she developed left shoulder pain the one from the left shoulder to the upper arm area. She woke up on Monday and felt like she slept on it wrong and experienced pain. The pain has been getting worse and has not been able to sleep for the past 2 nights. Patient is unable to lift her left arm. She utilizes her right arm to lift her left arm. She denies having any numbness or tingling. Area is very tender to touch. She denies having any radiation of the pain. No chest pain. She denies any bloody or tarry stools. She does see a chiropractor. Patient presented to [facility] emergency center for evaluation. She was afebrile, heart rate 72, blood pressure 230/118. Pulse ox 90% on room air. CBC was unremarkable. Potassium 2.4, CO2 32. BUN 22 and creatinine 1.04. Blood sugar 112. Magnesium 1.8. Troponin 0.095. 0.084 and 0.077. Urinalysis negative for infection. COVID-19 positive. EKG with sinus rhythm with T-wave inversions in Left shoulder x-ray reveals intra-articular sclerotic foci differential includes osteopoikilosis. Possible intra-articular loose bodies of the left shoulder region. Chest x-ray reveals new right lower lobe acute infiltrate and/or atelectasis Patient received hydralazine IV push 1, Lopressor, potassium, started on heparin drip, aspirin, Lopressor and Aldactone to be admitted to the cardiac stepdown unit and cardiology consult. 02/09: Patient has been seen bipolar medicine and recommended stopping dexamethasone, no need for additional treatment from pulmonary, pulmonary signed off. Cardiology has ruled out acute Hills syndrome and discontinued heparin drip. Echocardiogram reveals EF 55-60% with LA severely dilated greater than 40, moderate mitral regurgitation, mild mitral stenosis, mild tricuspid regurgitation. Orthopedics will follow the patient as an outpatient and have MRI of the left shoulder performed once she has completed isolation. Consult was added for nephrology and patient was seen by Dr. Linares with recommendations to maintain spironolactone and Lopressor, losartan and will follow-up in the office. BMP and magnesium in 2-3 days after discharge. Recommend low salt diet area and he also recommended decreasing potassium to 10 mEq once daily as patient has had hyperkalemia in the past. Patient had a potassium of 2.9 today and was replaced with 100 of potassium with repeat potassium level at 2.8. Patient's nurse will contact Dr. Linares for further instructions regarding potassium replacement. Once this is addressed, patient will be discharged home today in stable condition. ASSESSMENT AND PLAN 1. Covid 19 pneumonia. 2. Elevated troponin secondary to infectious process. 3. Hypokalemia. 4. Hypertensive emergency. 5. Left shoulder pain. 6. Hyperaldosteronism. 7. Hypothyroidism. 8. Mild intermittent asthma without exacerbation. DISCHARGE PLAN Home. Impression and plan of care have been directed as dictated by the signing physician. Rivka Combs nurse practitioner acting as scribe for signing physi shahzad. Patient Condition at Discharge: Stable Plan - Discharge Summary Discharge Rx Participant: No New Discharge Prescriptions: New Potassium Chloride ER [K-Dur 10] 10 meq PO DAILY #30 tab Ibuprofen [Motrin] 600 mg PO Q6HR PRN #30 tab PRN Reason: Pain Losartan [Cozaar] 50 mg PO DAILY #30 tab Ascorbic Acid [Vitamin C] 1,000 mg PO DAILY tab Cholecalciferol [Vitamin D3 (25 Mcg = 1000 Iu)] 50 mcg PO DAILY tablet Continue Spironolactone 100 mg PO DAILY Metoprolol Tartrate [Lopressor] 100 mg PO BID LORazepam [Ativan] 1 mg PO BID PRN PRN Reason: Anxiety Aspirin EC [Ecotrin Low Dose] 81 mg PO DAILY Levothyroxine Sodium [Synthroid] 125 mcg PO DAILY Discharge Medication List Aspirin EC [Ecotrin Low Dose] 81 mg PO DAILY 02/08/21 [History] LORazepam [Ativan] 1 mg PO BID PRN 02/08/21 [History] Levothyroxine Sodium [Synthroid] 125 mcg PO DAILY 02/08/21 [History] Metoprolol Tartrate [Lopressor] 100 mg PO BID 02/08/21 [History] Spironolactone 100 mg PO DAILY 02/08/21 [History] Ascorbic Acid [Vitamin C] 1,000 mg PO DAILY tab 02/09/21 [Rx] Cholecalciferol [Vitamin D3 (25 Mcg = 1000 Iu)] 50 mcg PO DAILY tablet 02/09/21 [Rx] Ibuprofen [Motrin] 600 mg PO Q6HR PRN #30 tab 02/09/21 [Rx] Losartan [Cozaar] 50 mg PO DAILY #30 tab 02/09/21 [Rx] Potassium Chloride ER [K-Dur 10] 10 meq PO DAILY #30 tab 02/09/21 [Rx] Follow up Appointment(s)/Referral(s): Kike Jarrett DO [Primary Care Provider] - 02/23/21 2:15 pm (Please follow up with your primary physician within one week of being discharged.) Marcelo Linares DO [STAFF PHYSICIAN] - 2 Weeks (Kidney specialist. Office in [place] as well.) Jersey Sanchez DO [Doctor of Osteopathic Medicine] - 3 Weeks (Orthopaedics.) Ambulatory/Diagnostic Orders: Basic Metabolic Panel [LAB.AMB] Time Frame: 3 Days, Location: None Selected Patient Instructions/Handouts: Coronavirus Disease 2019 (COVID-19), Hypokalemia (DC) Discharge Disposition: HOME SELF-CARE
== END 2021-02-09 16:11 | disposition home or self-care (01) | DRG 177 ==
LOC: EC 06:18 → 3SCARD 08:58
PROVIDERS: ADMIT Internal Medicine Geriatric Medicine; ATTEND Internal Medicine Geriatric Medicine
DX: U07.1 COVID-19 (principal); J12.82 Pneumonia due to coronavirus disease 2019; I16.1 Hypertensive emergency; I11.9 Hypertensive heart disease without heart failure; E26.09 Other primary hyperaldosteronism; F31.9 Bipolar disorder, unspecified; E87.6 Hypokalemia; E03.9 Hypothyroidism, unspecified; J45.20 Mild intermittent asthma, uncomplicated; I08.1 Rheumatic disorders of both mitral and tricuspid valves; I45.4 Nonspecific intraventricular block; F41.9 Anxiety disorder, unspecified; M25.512 Pain in left shoulder; M79.602 Pain in left arm; I25.2 Old myocardial infarction; R77.8 Other specified abnormalities of plasma proteins; E66.9 Obesity, unspecified; Z68.31 Body mass index [BMI] 31.0-31.9, adult; Z79.82 Long term (current) use of aspirin; Z79.890 Hormone replacement therapy; Z79.899 Other long term (current) drug therapy; Z87.39 Personal history of other diseases of the musculoskeletal system and connective tissue; Z98.84 Bariatric surgery status; Z87.891 Personal history of nicotine dependence; Z98.890 Other specified postprocedural states; Z88.0 Allergy status to penicillin; Z82.49 Family history of ischemic heart disease and other diseases of the circulatory system; Z83.49 Family history of other endocrine, nutritional and metabolic diseases; Z82.5 Family history of asthma and other chronic lower respiratory diseases; Z83.79 Family history of other diseases of the digestive system
CPT/HCPCS: 36415; 71046; 80048; 80053; 80061; 81001; 83735; 84132; 84484; 85025; 85610; 85730; 87635; 93005; 93306; 96374; 96375; 99284

== ENCOUNTER → 2021-02-12 | Outpatient (CLI) | payer BC ==
[2021-02-12 20:26] LABS: African American GFR (CKD) 71.2 (60.0-200.0); Anion Gap 8.4 mmol/L (4.00-12.00); BUN/Creat Ratio 16.36 Ratio (12.00-20.00); Calcium 9.4 mg/dL (8.7-10.3); Carbon Dioxide 28.6 mmol/L (21.6-31.8); Magnesium 1.8 mg/dL (1.5-2.4); Non-African American GFR(CKD) 61.4 (60.0-200.0); Potassium 3.3 mmol/L (3.5-5.5)
== END | disposition home or self-care (01) ==
LOC: LABWHC1 11:48
PROVIDERS: ATTEND Nurse Practitioner Family
DX: E87.6 Hypokalemia (principal)
CPT/HCPCS: 36415; 80048; 83735

== ENCOUNTER → 2021-05-19 | Outpatient (CLI) | payer OTHER ==
--- NOTE | 2021-05-19 17:18 | CONS ---
CONSULTATION DATE OF SERVICE: 05/19/2021. INDICATIONS: A 46-year-old lady has been evaluated in [facility] for possible obstructive sleep apnea-hypopnea syndrome. 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 and sleeps until 10 or 11 a.m. and basically she is doing it 7 days a week. Usually no problems with falling asleep. No TV in bedroom. She prefers to sleep on the side position. She snores and has been told about episodes of stopped breathing during sleep. She wakes up from sleep up to 6 times with 6 episodes of nocturia, panic attack, episodes of palpitations, positive history of sleep talking and sweating. In the morning the patient wakes up tired with difficulties paying attention, worries about her sleep, has problems with memory, concentration, depression, anxiety. [place] Sleepiness Scale is in very high range of 20. No history of hypnagogic hallucinations, sleep paralysis or cataplexy. Usually patient does not take any additional naps during the day. PAST MEDICAL HISTORY: Positive for hypertension, hypothyroidism, bipolar, cardiac murmur, asthma with exercise, headaches, anemia in the past. PAST SURGICAL HISTORY: Lap band surgery 2008, left thumb tendon repair in 2003. MEDICATIONS: Metoprolol 100 mg twice a day, levothyroxine 150 mcg once a day, aspirin 81 mg once a day, losartan 100 mg once a day, spironolactone 100 mg once a day, Vraylar 3 mg at bedtime. SOCIAL HISTORY: Negative for smoking or using alcohol at present time. ALLERGIES: Ampicillin. FAMILY HISTORY: Sleep apnea, stroke, during the sleep and mental illness. REVIEW OF SYSTEMS: Multiple awakenings from sleep. Stops breathing during the sleep. PHYSICAL EXAMINATION: GENERAL: lady without distress. VITAL SIGNS: BP 219/111, HR 50, RR 16, height 5 feet 4 inches, weight 201, body mass index 34.5, temperature 98.1, oxygen saturation at room air 98%. HEENT: PERRLA, EOMI. Oropharynx extremely low position of soft palate. Mallampati IV. NECK: Supple. No JVD. Thyroid is not palpable. Neck is wide; 16 inches in circumference. HEART: Slight murmur. LUNGS: Clear to percussion and to auscultation. ABDOMEN: Soft and nontender. Bowel sounds are present. No organomegaly appreciated. Slightly obese. EXTREMITIES: No clubbing or cyanosis. FRAME OPERATOR: Awake, alert, and oriented X3. Cranial nerves 2 to 7 intact. There is no fasciculation or atrophy. noted. No focal deficits observed. IMPRESSION: 1. Snoring, witnessed episodes of stopped breathing during sleep, multiple awakenings from sleep, extremely low position of soft palate, Mallampati 4, wide neck 16 inches, sleepiness, obstructive sleep apnea-hypopnea syndrome. 2. Extremely high excessive daytime sleepiness. [place] Sleepiness Scale is 20 with hypersomnia and narcolepsy in differential diagnosis, although no history of cataplexy or hypnagogic hallucination or sleep paralysis. 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 4. Obesity 5. 5. Hypertension, not on possibly not on good control with several medications, blood pressure high in the office today. 6. Hypothyroidism. 7. Asthma of exercise. 8. Headaches. 9. History of anemia in childhood. PLAN: 1. Patient prefers home sleep test because of work in the afternoon shift, will start from home sleep apnea test. 2. CPAP/BiPAP titration if sleep study confirms obstructive sleep apnea-hypopnea syndrome. 3. Preferable position during sleep on the side. 4. No driving if patient feels any sleepiness. 5. I will see patient for follow up visit to explain results of testing and following plan. Marquise Elkins MD, PhD, FAASM Diplomat of [employer] Chef Kitchen Manager of [facility] Thank you very much for referring this patient for consultation. MMODL / IJN: [id number] /
== END ==
LOC: SLEEP 10:37
PROVIDERS: ATTEND Internal Medicine
DX: G47.33 Obstructive sleep apnea (adult) (pediatric) (principal); E66.9 Obesity, unspecified; I10 Essential (primary) hypertension; E03.9 Hypothyroidism, unspecified; Z79.899 Other long term (current) drug therapy; F31.9 Bipolar disorder, unspecified; J45.909 Unspecified asthma, uncomplicated; Z88.0 Allergy status to penicillin
CPT/HCPCS: 99211

== ENCOUNTER → 2021-08-12 | Outpatient (CLI) | payer OTHER ==
--- NOTE | 2021-08-12 19:52 | SFUN ---
SLEEP CENTER FOLLOW UP NOTE DATE OF SERVICE: 08/12/2021 This 46-year-old lady has been followed in Sleep Center and is here to discuss results of her sleep study and following plan. Recently the patient had a home sleep apnea test and I discussed results of the test with her in detail. It showed 31 obstructive apneas and 37 hypopneas documented, and more than 2500 episodes of flow limitation. Apnea-hypopnea index 9.5. The patient continues to have symptoms of extremely high excessive daytime sleepiness. [place] Sleepiness Scale today is 19. She is on treatment for hypertension and bipolar disorder. I described different options for treatment of obstructive sleep apnea, including treatment with CPAP, surgical treatment, losing weight, electrical stimulation of hypoglossal nerve. MEDICATIONS: 1. Metoprolol 100 mg twice a day. 2. Synthroid 150 mcg once a day. 3. Aspirin 81 mg once a day. 4. Losartan 100 mg once a day. 5. Spironolactone 100 mg once a day. 6. Cariprazine 3 mg at bedtime. PHYSICAL EXAMINATION: GENERAL: Pleasant patient in no distress. No chest pain. No headaches. No dizziness. VITAL SIGNS: BP 219/102, HR 65, RR 12, height 5 feet 4 inches, weight 209, body mass index 35.7, temperature 97.6. Oxygen saturation at room air 99%. HEENT: PERRLA, EOMI, evaluation of oropharynx showed tongue protrudes midline. Extremely low position of soft palate; Mallampati IV. NECK: Supple, no JVD. Thyroid is not palpable. LUNGS: Clear to percussion and to auscultation. Good air exchange. No wheezing or rhonchi. HEART: S1, S2 regular. No murmurs, gallops, or rubs. ABDOMEN: Obese. EXTREMITIES: No clubbing or cyanosis. 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 Cranial nerves 2 to 7 intact. There is no fasciculation or atrophy. noted. No focal deficits observed. IMPRESSION: 1. Obstructive sleep apnea-hypopnea syndrome. 2. Extremely high excessive daytime sleepiness with Cascade Sleepiness Scale of 19 today. 3. Hypertension. Blood pressure is not under full control. Blood pressure during measurement in our offices a second time. 4. Bipolar. 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 6. Obesity. BMI 34.5. 7. Hypothyroidism. 8. Asthma with exercise. 9. Headaches. 10.History of anemia in childhood. PLAN: 1. CPAP titration for correction of respiratory abnormalities during sleep. 2. Monitoring of blood pressure. 3. Low-sodium diet. 4. Follow up with the primary care physician for monitoring and treatment of hypertension. 5. Losing weight. 6. Precautions related to driving. No driving if feeling sleepiness. 7. Follow-up visit after patient is started on treatment with CPAP to evaluate clinical response on treatment, compliance with treatment, and to make any necessary adjustments. 8. If the patient continues to have symptoms of extremely high [place] Sleepiness Scale while on CPAP, she may need a multiple sleep latency test. Thank you very much for allowing me to participate in the management of your patient. Sincerely, Marquise Elkins MD, PhD, FAASM Diplomat of [employer] Sleep Medicine [employer] [place] Cargo Service Agent of [facility] [place] [email or web address] / VISHNU: [id number] /
== END ==
LOC: SLEEP 09:56
PROVIDERS: ATTEND Internal Medicine
DX: G47.33 Obstructive sleep apnea (adult) (pediatric) (principal); I10 Essential (primary) hypertension; F31.9 Bipolar disorder, unspecified; E66.9 Obesity, unspecified; E03.9 Hypothyroidism, unspecified; J45.909 Unspecified asthma, uncomplicated; Z68.34 Body mass index [BMI] 34.0-34.9, adult; Z79.899 Other long term (current) drug therapy; Z88.1 Allergy status to other antibiotic agents

== ENCOUNTER → 2022-12-02 | Outpatient (CLI) | payer OTHER ==
[2022-12-02 23:02] LABS: Basophils # (A) 0.06 X 10*3/uL (0.00-0.10); Basophils % (A) 1.1 %; Eosinophils # (A) 0.25 X 10*3/uL (0.04-0.35); Eosinophils % (A) 4.5 %; HCT 35.4 % (37.2-46.3); HGB 11.4 g/dL (12.0-15.0); Immature Grans, Automated 0.4 %; Lymphocytes # (A) 1.56 X 10*3/uL (0.90-5.00); Lymphocytes % (A) 28.1 %; MCHC 32.2 g/dL (32.0-37.0); MCV 93.2 fL (80.0-97.0); Mean Platelet Volume 11.7 fL (9.5-12.2); Monocytes # (A) 0.42 X 10*3/uL (0.20-1.00); Monocytes % (A) 7.6 %; NRBC Per 100 WBC 0 /100 WBCS (0.0-0.0); Neutrophils # (A) 3.25 X 10*3/uL (1.80-7.70); Neutrophils % (A) 58.3 %; Platelet Count 212 X 10*3/uL (140-440); RDW 12.4 % (11.5-14.5); WBC 5.56 X 10*3/uL (4.50-10.00)
[2022-12-02 23:27] LABS: African American GFR (CKD) 37.5 (60.0-200.0); Non-African American GFR(CKD) 32.3 (60.0-200.0)
[2022-12-02 23:41] LABS: Hepatitis B Surface AB- Quant 3.5 mIU/mL; Hepatitis B Surface Antibody Nonreactive (Nonreactive)
[2022-12-02 23:42] LABS: Hepatitis B Core IgM Nonreactive (Nonreactive); Hepatitis B Surface Antigen Nonreactive (Nonreactive); Hepatitis C IgG Antibody Nonreactive (Nonreactive)
== END | disposition home or self-care (01) ==
LOC: LABWHC1 13:10
PROVIDERS: ATTEND Nurse Practitioner Family
DX: L40.0 Psoriasis vulgaris (principal)
CPT/HCPCS: 36415; 82565; 84450; 84460; 85025; 86480; 86705; 86706; 86803; 87340